=== PATIENT | female | born 1940 | race Caucasian/White ===

== ENCOUNTER 2021-02-07 12:18 | Observation (INO) ==
[2021-02-07 13:18] LABS: Basophils % 0.4 %; Eosinophils # 0.1 K/mcL (0.0-0.6); Eosinophils % 2.7 %; Hematocrit 36.4 % (35.3-44.9); Hemoglobin 11.5 g/dL (11.5-15.4); Immature Granulocytes % 0.4 % (0-4); Lymphocytes # 1.6 K/mcL (0.6-4.6); Lymphocytes % 30.9 %; Mean Corpuscular HGB Conc 31.6 g/dL (31.6-35.5); Mean Corpuscular Hemoglobin 29.1 pg (28.0-33.3); Mean Corpuscular Volume 92.2 fL (83.0-100.0); Monocytes # 0.4 K/mcL (0.0-1.3); Monocytes % 7.6 %; Neutrophils # 3.1 K/mcL (1.6-8.9); Platelet Count 115 K/mcL (140-400); Red Blood Count 3.95 M/mcL (3.82-4.97); Red Cell Distribution Width 13.6 % (11.5-14.5); White Blood Count 5.3 K/mcL (4.3-11.1)
[2021-02-07 13:32] LABS: BUN/Creatinine Ratio 19 (6-26); Blood Urea Nitrogen 20 mg/dL (8-23); Carbon Dioxide 31 mEq/L (23-29); Chloride 103 mEq/L (98-107); Glucose 94 mg/dL (70-105); Osmolality,Calculated 288 (280-300); Potassium 4.2 mEq/L (3.5-5.1); Sodium 138 mEq/L (136-145); eGFR For African Americans 60 (> 60); eGFR For Non-African Americans 49 (> 60)
[2021-02-07 13:40] LABS: Troponin I < 0.03 ng/mL (< 0.04)
[2021-02-07] MEDS ORDERED: Isovue-370 500 ML BOTTLE IVP ONE (13:54)
[2021-02-07] MEDS ORDERED: Aspirin 325 MG TABLET PO ONE (16:07)
[2021-02-07] MEDS ORDERED: Naloxone 0.4 MG/ML INJ IVP PRN (16:47)
[2021-02-07] MEDS ORDERED: Melatonin 3 MG TABLET PO PRN (16:47)
[2021-02-07] MEDS ORDERED: Ondansetron ODT 4 MG TAB.RAPDIS SL PRN (16:47)
[2021-02-07] MEDS ORDERED: Nitroglycerin 0.4 MG TAB.SUBL SL PRN (17:36)
[2021-02-07] MEDS ORDERED: Acetaminophen 325 MG TABLET PO PRN (17:37)
[2021-02-07] MEDS ORDERED: D5% in Water 1,000 ML IVC PRN (18:37)
[2021-02-07] MEDS ORDERED: Dextrose Gel 15 GM/37.5 ML TUBE PO PRN ×2 (18:37)
[2021-02-07] MEDS ORDERED: *HR* Dextrose 50 % in Water (Vial) 50 ML VIAL IVP PRN (18:37)
[2021-02-07] MEDS: *HR* Heparin 5,000 UNIT/ML VIAL SQ SCH (20:31)
[2021-02-07] MEDS ORDERED: ALPRAZolam 1 MG TABLET PO SCH (21:00)
[2021-02-08] MEDS: Sucralfate 1 GM TABLET PO SCH ×2 (04:23→15:25)
[2021-02-08] MEDS: *HR* Heparin 5,000 UNIT/ML VIAL SQ SCH ×2 (06:15→15:26)
[2021-02-08 06:32] LABS: Basophils % 0.4 %; Eosinophils # 0.1 K/mcL (0.0-0.6); Hematocrit 35.4 % (35.3-44.9); Hemoglobin 11.3 g/dL (11.5-15.4); Immature Granulocytes % 0.2 % (0-4); Lymphocytes # 1.3 K/mcL (0.6-4.6); Lymphocytes % 27.6 %; Mean Corpuscular HGB Conc 31.9 g/dL (31.6-35.5); Mean Corpuscular Hemoglobin 29.5 pg (28.0-33.3); Mean Corpuscular Volume 92.4 fL (83.0-100.0); Monocytes # 0.4 K/mcL (0.0-1.3); Monocytes % 8.8 %; Neutrophils # 2.8 K/mcL (1.6-8.9); Platelet Count 108 K/mcL (140-400); Red Blood Count 3.83 M/mcL (3.82-4.97); Red Cell Distribution Width 13.6 % (11.5-14.5); White Blood Count 4.6 K/mcL (4.3-11.1)
[2021-02-08 06:49] LABS: BUN/Creatinine Ratio 20 (6-26); Blood Urea Nitrogen 21 mg/dL (8-23); Calcium 9.4 mg/dL (8.6-10.3); Carbon Dioxide 29 mEq/L (23-29); Chloride 106 mEq/L (98-107); Chol/HDL Ratio 4.3 (0-4.9); Cholesterol 129 mg/dL (< 200); Glucose 111 mg/dL (70-105); HDL Cholesterol 30 mg/dL (40-59); LDL Cholesterol,Calculated 68 mg/dL (< 100); Magnesium 2.1 mg/dL (1.6-2.6); Osmolality,Calculated 292 (280-300); Phosphorous 3.2 mg/dL (2.7-4.5); Potassium 4.2 mEq/L (3.5-5.1); Sodium 139 mEq/L (136-145); Triglycerides 153 mg/dL (< 150); eGFR For African Americans > 60 (> 60); eGFR For Non-African Americans 50 (> 60)
[2021-02-08 07:18] VITALS: O2SAT 93
[2021-02-08] MEDS: Insulin LISPRO 300 UNITS/3 ML VIAL SUBQ SCH ×2 (07:49→15:26)
[2021-02-08] MEDS ORDERED: Regadenoson 0.4 MG/5 ML SYRINGE IVP ONE ×2 (07:52→12:45)
[2021-02-08] MEDS ORDERED: Sucralfate 1 GM TABLET PO SCH (08:00)
[2021-02-08] MEDS ORDERED: Cholecalciferol (D-3) 1,000 UNIT (25MCG) TABLET PO SCH (09:00)
[2021-02-08] MEDS ORDERED: Aspirin Enteric Coated 81 MG Tablet PO SCH (09:00)
[2021-02-08] MEDS ORDERED: amLODIPine 5 MG TABLET PO SCH (09:00)
[2021-02-08] MEDS ORDERED: Aspirin 81 MG TAB.CHEW PO SCH (09:00)
[2021-02-08] MEDS ORDERED: Furosemide 20 MG TABLET PO SCH (09:00)
[2021-02-08] MEDS ORDERED: Cyanocobalamin (B-12) 1,000 MCG TABLET PO SCH (09:00)
[2021-02-08 11:09] VITALS: BP 128/67; PULSE 69; TEMP 97.5
[2021-02-10] MEDS ORDERED: Ergocalciferol (VIT D2) 50,000 UNIT (1.25MG) CAP PO SCH (09:00)
== END 2021-02-08 16:27 | disposition home or self-care (01) ==
LOC: 3ANU 12:18 → EMEROOARM 12:18 → 3ANU 17:36
PROVIDERS: ADMIT Student in an Organized Health Care Education/Training Program; ATTEND Student in an Organized Health Care Education/Training Program